=== PATIENT | male | born 1995 | race Two or more races ===

== ENCOUNTER 2025-02-15 10:37 | Emergency (ER) | payer MEDICAID, SELFPAY ==
[2025-02-15 10:38] VITALS: BMI 21.4
[2025-02-15 10:55] VITALS: BP 123/71; PULSE 82; RESP 18; TEMP 36.8; O2SAT 97
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
== END 2025-02-15 12:38 | disposition home or self-care (01) ==
PROVIDERS: Emergency Provider Nurse Practitioner Primary Care
DX: S13.4XXA Sprain of ligaments of cervical spine, initial encounter (principal); M54.16 Radiculopathy, lumbar region; V89.2XXA Person injured in unspecified motor-vehicle accident, traffic, initial encounter
CPT/HCPCS: 72040; 72100; 99282